=== PATIENT | male | born 1995 | race Caucasian/White ===

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

== ENCOUNTER 2017-09-28 09:08 | Emergency (ER) | payer OTHER ==
[~2017-09-28] VITALS: Ht 188 cm; Wt 110.0 kg
[2017-09-28 09:41] VITALS: BP 129/74; PULSE 87; RESP 20; TEMP 98.3; O2SAT 99
[2017-09-28] MEDS ORDERED: ZYPR15TA PO (09:45)
[2017-09-28 09:46] LABS: AUTOMATED NEUTROPHIL # 14.8 TH/MM3 (1.8-7.7); BASOPHIL # 0.1 TH/MM3 (0-0.2); BASOPHIL % 0.3 % (0.0-2.0); EOSINOPHIL % 0.1 % (0.0-4.0); HEMATOCRIT 47.7 % (39.0-51.0); HEMOGLOBIN 16.5 GM/DL (13.0-17.0); LYMPH % 7.2 % (9.0-44.0); LYMPHOCYTE # 1.3 TH/MM3 (1.0-4.8); MEAN CELL VOLUME 91.6 FL (80.0-100.0); MEAN CORPUSCULAR HEMOGLOBIN 31.7 PG (27.0-34.0); MEAN CORPUSCULAR HGB CONC 34.7 % (32.0-36.0); MEAN PLATELET VOLUME 8.6 FL (7.0-11.0); MONO % 8.8 % (0.0-8.0); MONOCYTE # 1.6 TH/MM3 (0-0.9); NEUT % 83.6 % (16.0-70.0); PLATELET COUNT 227 TH/MM3 (150-450); RED CELL DISTRIBUTION WIDTH 13.9 % (11.6-17.2); WHITE BLOOD COUNT 17.7 TH/MM3 (4.0-11.0)
[2017-09-28] MEDS ORDERED: OXCA150T PO (09:53)
[2017-09-28] MEDS ORDERED: CLON0.1T PO (09:53)
[2017-09-28 10:01] LABS: ALBUMIN 4.3 GM/DL (3.4-5.0); AMORPHOUS SEDIMENT, URINE MOD; AST (GOT) 33 U/L (15-39); BACTERIA, URINE OCC /hpf; BICARBONATE 24.5 MEQ/L (21.0-32.0); BILIRUBIN, URINE NEG (NEG); BLOOD UREA NITROGEN 11 MG/DL (7-18); BLOOD, URINE MOD (NEG); CALCIUM 9.2 MG/DL (8.5-10.1); CHLORIDE 99 MEQ/L (98-107); CREATININE 1.06 MG/DL (0.60-1.30); GLOMERULAR FILTRATION RATE 89 ML/MIN (>89); GLUCOSE,RANDOM 123 MG/DL (74-106); GLUCOSE,URINE NEG (NEG); HYALINE CAST, URINE 8 /lpf (RARE); KETONE, URINE NEG (NEG); MUCUS URINE MANY /lpf (OCC); NITRITE,URINE NEG (NEG); SODIUM (NA) 133 MEQ/L (136-145); URINE LEUKOCYTE ESTERASE NEG (NEG)
[2017-09-28 10:02] LABS: ALT (GPT) 34 U/L (9-52); URINE COLOR YELLOW (YELLW/STRAW)
[2017-09-28 10:05] LABS: ALKALINE PHOSPHATASE 66 U/L (45-117); TOTAL BILIRUBIN ADULT 0.9 MG/DL (0.2-1.0); TOTAL PROTEIN 8.4 GM/DL (6.4-8.2)
--- NOTE | 2017-09-28 12:10 | PD ---
HPI Chief Complaint: Psychiatric Symptoms Time Seen by Provider: 11:26 Travel History International Travel<30 days: No Contact w/Intl Traveler<30days: No Traveled to known affect area: No History of Present Illness HPI 22-year-old male that presents to the ED for evaluation of Fide. 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 Per patient he is not suicidal or homicidal. Per patient he has a history of autism. History of hypertension. States having multiple allergies. Denies any chest pain or shortness of breath. No fevers chills or sweats. No chest pain or shortness of breath. Patient does not know his last tetanus shot but likely no recent secondary to allergy to pertussis. Patient has no other medical complaints. Patient denies any suicidal or homicidal ideation. Per patient he cut himself to get attention. He has no pain. He did this over an hour ago. Symptoms appear to be ongoing as patient tells me that he has trouble with the law. Apparently his family does not want him back secondary to being fearful of him. PFSH Past Medical History Hx Anticoagulant Therapy: No ADD: Yes ADHD: Yes Bipolar Disorder: Yes Weight (Kg): 1 Cancer: No Cardiovascular Problems: Yes (HTN) Chemotherapy: No Cerebrovascular Accident: No Developmental Delay: Yes Diabetes: No Diminished Hearing: No Headaches: No Psychiatric: Yes (Mood do, adhd, depression, odd, PDD) Respiratory: Yes (asthma) Immunizations Current: Yes Migraines: Yes Seizures: Yes (Pt has not had any seizures in 8 years. ) Thyroid Disease: No Ulcer: No Tetanus Vaccination: Unknown Past Surgical History Appendectomy: No Section: No Cholecystectomy: No Hysterectomy: No Tympanostomy Tube: Yes Other Surgery: Yes (EXTENSIVE DOG BITE AGE 1.5) Social History Alcohol Use: Yes (4xs per week) Tobacco Use: Yes (1 PPD) Substance Use: Yes (HX OF CANNABIS AND K-2) Allergies-Medications (Allergen,Severity, Reaction): Coded Allergies: Pertussis Vaccines (Unverified Allergy, Severe, Seizures, 09/28/17) divalproex sodium (Unverified Allergy, Severe, Irritability/Anxiety, ) mx states pt becomes violent on depakote penicillin G (Unverified Allergy, Severe, TONGUE SWELLS/HIVES/RASH, ) bee venom protein (honey bee) (Unverified Allergy, Mild, 09/28/17) Uncoded Allergies: RANCH DRESSING (Allergy, Severe, Hives/FACIAL SWELLING, 06/25/15) . Reported Meds & Prescriptions Reported Meds & Active Scripts Active Reported Oxcarbazepine 150 Mg Tab 150 Mg PO BID Clonidine (Clonidine HCl) 0.1 Mg Tab 0.1 Mg PO BID Zyprexa (Olanzapine) 15 Mg Tab 15 Mg PO DAILY Review of Systems Except as stated in HPI: all other systems reviewed are Neg Physical Exam Narrative GENERAL: SKIN: Warm and dry. HEAD: Atraumatic. Normocephalic. EYES: Pupils equal and round. No scleral icterus. No injection or drainage. ENT: No nasal bleeding or discharge. Mucous membranes pink and moist. Tongue is midline. No uvula deviation. NECK: Trachea midline. No JVD. CARDIOVASCULAR: Regular rate and rhythm. No murmurs, S3, S4. RESPIRATORY: No accessory muscle use. Clear to auscultation. Breath sounds equal bilaterally. GASTROINTESTINAL: Abdomen soft, non-tender, nondistended. Hepatic and splenic margins not palpable. MUSCULOSKELETAL: Extremities without clubbing, cyanosis, or edema. No obvious deformities. Full range of motion of the upper and lower extremities bilaterally. 2+ pulses bilaterally. NEUROLOGICAL: Awake and alert. No obvious cranial nerve deficits. Motor grossly within normal limits. Five out of 5 muscle strength in the arms and legs. Normal speech. PSYCHIATRIC: Appropriate mood and affect; insight and judgment normal. Data Data Last Documented VS Vital Signs Date Time Temp Pulse Resp B/P (MAP) Pulse Ox O2 Delivery O2 Flow Rate FiO2 09/28/17 09:41 98.3 87 20 129/74 (92) 99 Orders Orders Complete Blood Count With Diff (09/28/17 09:15) Comprehensive Metabolic Panel (09/28/17 09:15) Urinalysis - C+S If Indicated (09/28/17 09:15) Psych Screen (09/28/17 09:15) Drug Screen, Random Urine (09/28/17 09:15) Alcohol (Ethanol) (09/28/17 09:15) Labs Laboratory Tests Test 09/28/17 09:25 White Blood Count 17.7 TH/MM3 Red Blood Count 5.20 MIL/MM3 Hemoglobin 16.5 GM/DL Hematocrit 47.7 % Mean Corpuscular Volume 91.6 FL Mean Corpuscular Hemoglobin 31.7 PG Mean Corpuscular Hemoglobin Concent 34.7 % Red Cell Distribution Width 13.9 % Platelet Count 227 TH/MM3 Mean Platelet Volume 8.6 FL Neutrophils (%) (Auto) 83.6 % Lymphocytes (%) (Auto) 7.2 % Monocytes (%) (Auto) 8.8 % Eosinophils (%) (Auto) 0.1 % Basophils (%) (Auto) 0.3 % Neutrophils # (Auto) 14.8 TH/MM3 Lymphocytes # (Auto) 1.3 TH/MM3 Monocytes # (Auto) 1.6 TH/MM3 Eosinophils # (Auto) 0.0 TH/MM3 Basophils # (Auto) 0.1 TH/MM3 CBC Comment DIFF FINAL Differential Comment Urine Color YELLOW Urine Turbidity CLOUDY Urine pH 6.0 Urine Specific [place] 1.027 Urine Protein 300 mg/dL Urine Glucose (UA) NEG mg/dL Urine Ketones NEG mg/dL Urine Occult Blood MOD Urine Nitrite NEG Urine Bilirubin NEG Urine Urobilinogen LESS THAN 2.0 MG/DL Urine Leukocyte Esterase NEG Urine RBC 2 /hpf Urine WBC 2 /hpf Urine Amorphous Sediment MOD Urine Bacteria OCC /hpf Urine Hyaline Casts 8 /lpf Urine Mucus MANY /lpf Microscopic Urinalysis Comment CULT NOT INDICATED Blood Urea Nitrogen 11 MG/DL Creatinine 1.06 MG/DL Random Glucose 123 MG/DL Total Protein 8.4 GM/DL Albumin 4.3 GM/DL Calcium Level 9.2 MG/DL Alkaline Phosphatase 66 U/L Aspartate Amino Transf (AST/SGOT) 33 U/L Alanine Aminotransferase (ALT/SGPT) 34 U/L Total Bilirubin 0.9 MG/DL Sodium Level 133 MEQ/L Potassium Level 3.9 MEQ/L Chloride Level 99 MEQ/L Carbon Dioxide Level 24.5 MEQ/L Anion Gap 10 MEQ/L Estimat Glomerular Filtration Rate 89 ML/MIN Urine Opiates Screen NEG Urine Barbiturates Screen NEG Urine Amphetamines Screen NEG Urine Benzodiazepines Screen POS Urine Cocaine Screen NEG Urine Cannabinoids Screen POS Ethyl Alcohol Level LESS THAN 3 MG/DL MDM Medical Decision Making Medical Screen Exam Complete: Yes Emergency Medical Condition: Yes Medical Record Reviewed: Yes Interpretation(s) CBC & BMP Diagram 09/28/17 09:25 Total Protein 8.4 H, Albumin 4.3, Calcium Level 9.2, Alkaline Phosphatase 66, Aspartate Amino Transf (AST/SGOT) 33, Alanine Aminotransferase (ALT/SGPT) 34, Total Bilirubin 0.9 tox positive for cannabionids and benzos. Differential Diagnosis Depression versus suicidal ideation versus anxiety versus adjustment disorder versus mood disorder versus bipolar disorder versus schizophrenia versus paranoid disorder versus psychosis versus substance abuse versus alcohol abuse versus alcohol induced psychosis versus homicidality addition versus cutting versus personality disorder Narrative Course 22-year-old male that presents to the ED for evaluation of psych. Patient was properly examined and was found to have signs and symptoms consistent with psychiatric illness. Labs were ordered. Patient was medically cleared. Okay to be seen by psych. Patient was not given a tetanus booster as patient is allergic to pertussis vaccine. Mental health screening was discussed with the patient. Diagnosis Primary Impression: Drug-induced mood disorder Chay Moe Sep 28, 2017 12:10
[2017-09-28 18:25] VITALS: BP 138/75; PULSE 72; RESP 16; TEMP 97.8; O2SAT 98
[2017-09-29 02:23] VITALS: BP 151/83; PULSE 94; RESP 18; TEMP 98.2; O2SAT 96
[2017-09-29 06:14] VITALS: BP 147/90; PULSE 63; RESP 18; O2SAT 97
[2017-09-29 11:10] VITALS: BP 147/89; PULSE 99; RESP 16; O2SAT 98
--- NOTE | 2017-09-29 11:23 | PD ---
Data Data Last Documented VS Vital Signs Date Time Temp Pulse Resp B/P (MAP) Pulse Ox O2 Delivery O2 Flow Rate FiO2 09/29/17 11:10 99 16 147/89 (108) 98 Room Air 09/29/17 02:23 98.2 Orders Orders Complete Blood Count With Diff (09/28/17 09:15) Comprehensive Metabolic Panel (09/28/17 09:15) Urinalysis - C+S If Indicated (09/28/17 09:15) Psych Screen (09/28/17 09:15) Drug Screen, Random Urine (09/28/17 09:15) Alcohol (Ethanol) (09/28/17 09:15) Diet Regular Basic (09/28/17 Dinner) Diet Regular Basic (09/29/17 Breakfast) Diet Regular Basic (09/29/17 Lunch) Ed Discharge Order (09/29/17 11:22) Labs Laboratory Tests Test 09/28/17 09:25 White Blood Count 17.7 TH/MM3 Red Blood Count 5.20 MIL/MM3 Hemoglobin 16.5 GM/DL Hematocrit 47.7 % Mean Corpuscular Volume 91.6 FL Mean Corpuscular Hemoglobin 31.7 PG Mean Corpuscular Hemoglobin Concent 34.7 % Red Cell Distribution Width 13.9 % Platelet Count 227 TH/MM3 Mean Platelet Volume 8.6 FL Neutrophils (%) (Auto) 83.6 % Lymphocytes (%) (Auto) 7.2 % Monocytes (%) (Auto) 8.8 % Eosinophils (%) (Auto) 0.1 % Basophils (%) (Auto) 0.3 % Neutrophils # (Auto) 14.8 TH/MM3 Lymphocytes # (Auto) 1.3 TH/MM3 Monocytes # (Auto) 1.6 TH/MM3 Eosinophils # (Auto) 0.0 TH/MM3 Basophils # (Auto) 0.1 TH/MM3 CBC Comment DIFF FINAL Differential Comment Urine Color YELLOW Urine Turbidity CLOUDY Urine pH 6.0 Urine Specific [place] 1.027 Urine Protein 300 mg/dL Urine Glucose (UA) NEG mg/dL Urine Ketones NEG mg/dL Urine Occult Blood MOD Urine Nitrite NEG Urine Bilirubin NEG Urine Urobilinogen LESS THAN 2.0 MG/DL Urine Leukocyte Esterase NEG Urine RBC 2 /hpf Urine WBC 2 /hpf Urine Amorphous Sediment MOD Urine Bacteria OCC /hpf Urine Hyaline Casts 8 /lpf Urine Mucus MANY /lpf Microscopic Urinalysis Comment CULT NOT INDICATED Blood Urea Nitrogen 11 MG/DL Creatinine 1.06 MG/DL Random Glucose 123 MG/DL Total Protein 8.4 GM/DL Albumin 4.3 GM/DL Calcium Level 9.2 MG/DL Alkaline Phosphatase 66 U/L Aspartate Amino Transf (AST/SGOT) 33 U/L Alanine Aminotransferase (ALT/SGPT) 34 U/L Total Bilirubin 0.9 MG/DL Sodium Level 133 MEQ/L Potassium Level 3.9 MEQ/L Chloride Level 99 MEQ/L Carbon Dioxide Level 24.5 MEQ/L Anion Gap 10 MEQ/L Estimat Glomerular Filtration Rate 89 ML/MIN Urine Opiates Screen NEG Urine Barbiturates Screen NEG Urine Amphetamines Screen NEG Urine Benzodiazepines Screen POS Urine Cocaine Screen NEG Urine Cannabinoids Screen POS Ethyl Alcohol Level LESS THAN 3 MG/DL MDM Medical Record Reviewed: Yes Supervised Visit with SUBHASH: No Narrative Course Please see previous provider's notes. This patient's Elizalde act has been lifted by psychiatry and he has been deemed clear by psychiatry. He is currently awake , alert, has no medical complaints to warrant additional hospitalization. He is stable for discharge. Diagnosis Primary Impression: Drug-induced mood disorder Martin Riojas Sep 29, 2017 11:23
--- NOTE | 2017-09-29 14:42 | PD ---
History of Present Illness Chief Complaint: Psychiatric Symptoms Time Seen by Provider: 11:00 Travel History International Travel<30 Days: No Contact w/Intl Traveler<30days: No Known affected area: No Legal Status Legal Status: Elizalde Act Elizalde Act Signed By: Magno Jean Elizalde Act Comment: 09/28/2017 0900 PM [facility]. [facility] #[phone] History of Present Illness: 22-year-old male presents under a Elizalde act after getting into an altercation at home. Patient is very well known to this physician. Apparently he has been using drugs and owes his drug dealer money. He got into an argument/ altercation with family members over money. At this time, the patient is calm, pleasant and cooperative. He is not intoxicated. He has no suicidal or homicidal ideation, plan or intent. He has no psychotic symptoms and his cognition is intact. He is verbally epifanio for safety and he is competent to do so. Toxicology screen reviewed and noted to be positive for benzodiazepines and cannabinoids. PFSH Past Medical History Hx Anticoagulant Therapy: No ADD: Yes ADHD: Yes Bipolar Disorder: Yes Weight (Kg): 1 Cancer: No Cardiovascular Problems: Yes (HTN) Chemotherapy: No Cerebrovascular Accident: No Developmental Delay: Yes Diabetes: No Diminished Hearing: No Headaches: No Psychiatric: Yes (Mood do, adhd, depression, odd, PDD) Respiratory: Yes (asthma) Immunizations Current: Yes Migraines: Yes Seizures: Yes (Pt has not had any seizures in 8 years. ) Thyroid Disease: No Ulcer: No Tetanus Vaccination: Unknown Past Surgical History Appendectomy: No Section: No Cholecystectomy: No Hysterectomy: No Tympanostomy Tube: Yes Other Surgery: Yes (EXTENSIVE DOG BITE AGE 1.5) Psychiatric History Psychiatric History Hx Psychiatric Treatment: HX OF ADHD, ODD, BIPOLAR D/O AUTISM AND DEVELOPMENTAL DELAY History of Inpatient Treatment: Yes Guns or firearms in home: No Social History Hx Alcohol Use: Yes (4xs per week) Hx Tobacco Use: Yes (1 PPD) Hx Substance Use: Yes (HX OF CANNABIS AND K-2) Substance Use Type: Alcohol, Marijuana, Ecstasy, Benzos (Valium,Xanax), Heroin , Cocaine, Synth Opiates-Pain Pills Hx of Substance Use Treatment: No Allergies-Medications (Allergen,Severity, Reaction): Coded Allergies: Pertussis Vaccines (Unverified Allergy, Severe, Seizures, 09/28/17) divalproex sodium (Unverified Allergy, Severe, Irritability/Anxiety, ) mx states pt becomes violent on depakote penicillin G (Unverified Allergy, Severe, TONGUE SWELLS/HIVES/RASH, ) bee venom protein (honey bee) (Unverified Allergy, Mild, 09/28/17) Uncoded Allergies: RANCH DRESSING (Allergy, Severe, Hives/FACIAL SWELLING, 06/25/15) . Reported Meds & Prescriptions Reported Meds & Active Scripts Active Reported Oxcarbazepine 150 Mg Tab 150 Mg PO BID Clonidine (Clonidine HCl) 0.1 Mg Tab 0.1 Mg PO BID Zyprexa (Olanzapine) 15 Mg Tab 15 Mg PO DAILY Review of Systems Except as stated in HPI: all other systems reviewed are Neg Mental Status Examination Appearance: Appropriate Consciousness: Alert Orientation: x4 Motor Activity: Normal gait Speech: Unremarkable Language: Adequate Fund of Knowledge: Adequate Attention and Concentration: Adequate Memory: Unremarkable Mood: Appropriate Affect: Appropriate Thought Process & Associations: Intact Thought Content: Appropriate Hallucination Type: None Delusion Type: None Suicidal Ideation: No Suicidal Plan: No Suicidal Intention: No Homicidal Ideation: No Homicidal Plan: No Homicidal Intention: No Insight: Adequate Judgment: Adequate MDM Medical Decision Making Medical Record Reviewed: Yes Assessment/Plan Patient interviewed at bedside. Electronic medical record reviewed. Case discussed with nurse Ni. Patient does not meet Elizalde act criteria and does not meet criteria for involuntary psychiatric hospitalization. He apparently can return to live with family members as he has called his grandmother and spoken to her already this morning. He can be treated on an outpatient basis. Orders Orders Diet Regular Basic (09/28/17 Dinner) Diet Regular Basic (09/29/17 Breakfast) Ed Discharge Order (09/29/17 11:22) Results Vital Signs Date Time Temp Pulse Resp B/P (MAP) Pulse Ox O2 Delivery O2 Flow Rate FiO2 09/29/17 12:26 09/29/17 11:10 99 16 147/89 (108) 98 Room Air 09/29/17 06:14 63 18 147/90 (109) 97 09/29/17 02:23 98.2 94 18 151/83 (105) 96 Room Air 09/28/17 18:25 97.8 72 16 138/75 (96) 98 Room Air Diagnosis Primary Impression: Adjustment disorder with mixed disturbance of emotions and conduct Additional Impression: Cannabis abuse Departure Forms: Tests/Procedures Patient Instructions: General Instructions, Stress (ED) Additional Instructions: Follow up with your psychiatrist Disposition: 01 DISCHARGE HOME Problem Qualifiers Roderick Crowley MD Sep 29, 2017 14:42
== END 2017-09-29 12:27 | disposition home or self-care (01) ==
LOC: NEDAMB 09:08 → NEPJ 09-29 12:27
DX: F43.25 Adjustment disorder with mixed disturbance of emotions and conduct (principal); F19.94 Other psychoactive substance use, unspecified with psychoactive substance-induced mood disorder; F84.0 Autistic disorder; F31.9 Bipolar disorder, unspecified; F90.9 Attention-deficit hyperactivity disorder, unspecified type; F91.3 Oppositional defiant disorder; I10 Essential (primary) hypertension; F12.10 Cannabis abuse, uncomplicated; F17.200 Nicotine dependence, unspecified, uncomplicated
CPT/HCPCS: 80053; 80307; 81001; 85025; 99284